=== PATIENT | male | born 1990 | race American Indian/Alaskan Native ===

== ENCOUNTER 2021-09-06 21:10 | Emergency (ER) | payer SELFPAY ==
[2021-09-06] MEDS ORDERED: SODIUM CHLORIDE 0.9% 1000 ML 1,000 ML IV ONE (21:42)
[2021-09-06] MEDS ORDERED: diazePAM 10 MG/2 ML SYRINGE IV ONE (21:42)
--- NOTE | 2021-09-06 21:43 | Emergency Department Report ---
ED General Adult HPI - General Chief complaint: Back Pain/Injury Stated complaint: BACK PAIN Time Seen by Provider: 09/06/21 21:31 Source: patient, EMS (Verbal report received from emergency medical services. EMS documentation not available at time of chart dictation ), RN notes reviewed Mode of arrival: Stretcher Limitations: Physical Limitation - History of Present Illness Initial comments: The patient was evaluated in the emergency department for symptoms described in the history of present illness. He/she was evaluated in the context of the [facility] COVID-19 pandemic, which necessitated consideration that the patient might be at risk for infection with the virus that causes COVID-19. Institutional protocols and algorithms that pertain to the evaluation of patients at risk for COVID-19 are in a state of rapid change based on information released by regulatory bodies including the CDC and federal and state organizations. These policies and algorithms were followed during the patient's care in the emergency department. Please note that these policies, procedures and recommendations changed on a rapid basis. This is a 30-year-old gentleman. He is brought to the hospital by emergency medical services. History obtained from patient and from EMS. As per verbal report from emergency medical services, patient is picked up while laying on a bed. The patient reportedly did a lot of heavy lifting yesterday in the hot outdoors. Patient reports wearing very heavy weights on his legs. He complains of paraspinal back pain. He is moving 4 extremities. No endorsement of bladder or bowel retention or incontinence. Patient having intermittent spasms. He is not homicidal or suicidal. - Related Data Previous Rx's Medication Instructions Recorded Last Taken Type Acetaminophen [Non-Aspirin Extra 500 mg PO Q6HR PRN #30 tablet 09/06/21 Unknown Rx Strength] Ibuprofen [Motrin] 600 mg PO Q8H PRN #30 tablet 09/06/21 Unknown Rx Allergies Allergy/AdvReac Type Severity Reaction Status Date / Time No Known Allergies Allergy Verified 09/06/21 22:22 ED Review of Systems ROS: Stated complaint: BACK PAIN Other details as noted in HPI ED Past Medical Hx - Social History Smoking Status: Never Smoker Substance Use Type: Alcohol, Marijuana - Medications Home Medications: Home Medications Medication Instructions Recorded Confirmed Last Taken Type Acetaminophen [Non-Aspirin Extra 500 mg PO Q6HR PRN #30 tablet 09/06/21 Unknown Rx Strength] Ibuprofen [Motrin] 600 mg PO Q8H PRN #30 tablet 09/06/21 Unknown Rx ED Physical Exam - General Limitations: No Limitations ED Course Vital Signs 09/06/21 09/06/21 09/06/21 21:21 21:36 21:46 Temperature 98.2 F Pulse Rate 98 H 103 H 101 H Respiratory 19 11 L 16 Rate Blood Pressure 148/82 145/86 Blood Pressure [Right] O2 Sat by Pulse 98 98 Oximetry O2 Sat by Pulse Oximetry [ Digit-Finger] 09/06/21 09/06/21 09/06/21 22:04 22:22 22:44 Temperature 98.9 F Pulse Rate 93 H Respiratory 15 11 L Rate Blood Pressure 145/86 Blood Pressure 147/82 [Right] O2 Sat by Pulse 99 Oximetry O2 Sat by Pulse 99 Oximetry [ Digit-Finger] - Reevaluation(s) Reevaluation #1: 09/06/21 23:52 The patient is reassessed. He feels completely improved. He is moving 4 extremities. On initial reassessment, he is resting comfortably, sleeping and in no acute distress. He endorses near complete resolution of symptoms. His laboratory studies are essentially unremarkable. CT scan is essentially unremarkable. We discussed conservative care for presumed mechanical back pain. Return precautions are reviewed. All questions answered - Pulse Oximetry Interpretation Digit-Finger Initial Pulse Oximetry Readin O2 Sat by Pulse Oximetry: 99 Actions Taken: none ED Medical Decision Making - Lab Data Result diagrams: 09/06/21 22:32 09/06/21 22:32 Vital Signs 09/06/21 09/06/21 09/06/21 21:21 21:36 21:46 Temperature 98.2 F Pulse Rate 98 H 103 H 101 H Respiratory 19 11 L 16 Rate Blood Pressure 148/82 145/86 Blood Pressure [Right] O2 Sat by Pulse 98 98 Oximetry 09/06/21 09/06/21 22:04 22:22 Temperature 98.9 F Pulse Rate 93 H Respiratory 15 11 L Rate Blood Pressure 145/86 Blood Pressure 147/82 [Right] O2 Sat by Pulse 99 Oximetry Vital Signs 09/06/21 09/06/21 09/06/21 21:21 21:36 21:46 Temperature 98.2 F Pulse Rate 98 H 103 H 101 H Respiratory 19 11 L 16 Rate Blood Pressure 148/82 145/86 Blood Pressure [Right] O2 Sat by Pulse 98 98 Oximetry O2 Sat by Pulse Oximetry [ Digit-Finger] 09/06/21 09/06/21 09/06/21 22:04 22:22 22:44 Temperature 98.9 F Pulse Rate 93 H Respiratory 15 11 L Rate Blood Pressure 145/86 Blood Pressure 147/82 [Right] O2 Sat by Pulse 99 Oximetry O2 Sat by Pulse 99 Oximetry [ Digit-Finger] Lab Results 09/06/21 09/06/21 09/06/21 Range/Units 22:32 22:32 22:32 Hgb 13.0 (11.8-15.2) gm/dl Hct 39.9 (35.5-45.6) % Sodium 137 (137-145) mmol/L Potassium 4.1 (3.6-5.0) mmol/L Chloride 99.0 (98-107) mmol/L Carbon Dioxide 29 (22-30) mmol/L Anion Gap 13 mmol/L BUN 11 (9-20) mg/dL Creatinine 0.7 L (0.8-1.3) mg/dL Estimated GFR > 60 ml/min BUN/Creatinine Ratio 16 % Glucose 130 H (75-100) mg/dL Calcium 10.0 (8.4-10.2) mg/dL Total Bilirubin 0.90 (0.1-1.2) mg/dL AST 20 (5-40) units/L ALT 16 (7-56) units/L Alkaline Phosphatase 67 (35-129) units/L Total Creatine Kinase 231 H (55-170) units/L Total Protein 7.6 (6.3-8.2) g/dL Albumin 4.1 (3.9-5) g/dL Albumin/Globulin Ratio 1.2 % Salicylates < 0.3 L (2.8-20.0) mg/dL Acetaminophen (10.0-30.0) ug/mL 09/06/21 Range/Units 22:32 Hgb (11.8-15.2) gm/dl Hct (35.5-45.6) % Sodium (137-145) mmol/L Potassium (3.6-5.0) mmol/L Chloride (98-107) mmol/L Carbon Dioxide (22-30) mmol/L Anion Gap mmol/L BUN (9-20) mg/dL Creatinine (0.8-1.3) mg/dL Estimated GFR ml/min BUN/Creatinine Ratio % Glucose (75-100) mg/dL Calcium (8.4-10.2) mg/dL Total Bilirubin (0.1-1.2) mg/dL AST (5-40) units/L ALT (7-56) units/L Alkaline Phosphatase (35-129) units/L Total Creatine Kinase (55-170) units/L Total Protein (6.3-8.2) g/dL Albumin (3.9-5) g/dL Albumin/Globulin Ratio % Salicylates (2.8-20.0) mg/dL Acetaminophen 5.0 L (10.0-30.0) ug/mL - Radiology Data Radiology results: pending, report reviewed, image reviewed CT ABDOMEN AND PELVIS WITHOUT CONTRAST INDICATION / CLINICAL INFORMATION: Muscular back pain and myalgias after heavy liftin. TECHNIQUE: Axial CT images were obtained through the abdomen and pelvis without IV contrast. All CT scans at this location are performed using CT dose reduction for [employer] by means of automated exposure control. COMPARISON: None available. FINDINGS: LOWER CHEST: No significant abnormality. AORTA / ARTERIES: No significant abnormality. IVC / VEINS: No significant abnormality. LYMPH NODES: No significant adenopathy. COLON: No significant abnormality. APPENDIX: No significant abnormality. STOMACH / SMALL BOWEL: No significant abnormality. PERITONEUM: No free fluid. No free air. No fluid collection. LIVER: No significant abnormality. GALLBLADDER: No significant abnormality. BILE DUCTS: No significant abnormality. PANCREAS: No significant abnormality. SPLEEN: No significant abnormality. ADRENALS: No significant abnormality. RIGHT KIDNEY / URETER: No significant abnormality. LEFT KIDNEY / URETER: No significant abnormality. URINARY BLADDER: No significant abnormality. REPRODUCTIVE ORGANS: No significant abnormality. SKELETAL SYSTEM: No significant abnormality. ADDITIONAL FINDINGS: None. IMPRESSION: 1. No CT findings to explain symptomatology. Signer Name: Omar Martino DO Signed: 09/06/2021 9:29 PM Workstation Name: [id number] Critical care attestation.: If time is entered above; I have spent that time in minutes in the direct care of this critically ill patient, excluding procedure time. ED Disposition Clinical Impression: Lower back pain, Muscle spasm Disposition: HOME / SELF CARE / HOMELESS Is pt being admited?: No Does the pt Need Aspirin: No Condition: Good Additional Instructions: Alternate ice packs and heat packs as needed for physical pain. Drink 6 cups of water per day. Advance diet as tolerated. Take the prescribed pain medications as needed and directed. Avoid heavy lifting and strenuous physical activity. Follow-up with an outpatient primary care doctor within the next week. Please return to the emergency room right away with new pain, worsened pain, migration of pain, projectile vomiting, change in mental status, confusion, inability tolerate liquid feeds, new, worsened or different symptoms not present on the initial emergency room evaluation Referrals: [facility] [Provider Group] - 3-5 Days
--- NOTE | 2021-09-06 22:34 | Cat Scan Report ---
CT ABDOMEN AND PELVIS WITHOUT CONTRAST INDICATION / CLINICAL INFORMATION: Muscular back pain and myalgias after heavy liftin. TECHNIQUE: Axial CT images were obtained through the abdomen and pelvis without IV contrast. All CT scans at this location are performed using CT dose reduction for [place] by means of automated exposure control. COMPARISON: None available. FINDINGS: LOWER CHEST: No significant abnormality. AORTA / ARTERIES: No significant abnormality. IVC / VEINS: No significant abnormality. LYMPH NODES: No significant adenopathy. COLON: No significant abnormality. APPENDIX: No significant abnormality. STOMACH / SMALL BOWEL: No significant abnormality. PERITONEUM: No free fluid. No free air. No fluid collection. LIVER: No significant abnormality. GALLBLADDER: No significant abnormality. BILE DUCTS: No significant abnormality. PANCREAS: No significant abnormality. SPLEEN: No significant abnormality. ADRENALS: No significant abnormality. RIGHT KIDNEY / URETER: No significant abnormality. LEFT KIDNEY / URETER: No significant abnormality. URINARY BLADDER: No significant abnormality. REPRODUCTIVE ORGANS: No significant abnormality. SKELETAL SYSTEM: No significant abnormality. ADDITIONAL FINDINGS: None. IMPRESSION: 1. No CT findings to explain symptomatology. Signer Name: Omar Martino DO Signed: 09/06/2021 10:29 PM Workstation Name: [id number]
[2021-09-06 22:46] LABS: Hematocrit 39.9 % (35.5-45.6)
[2021-09-06 23:14] LABS: Alanine Aminotransferase 16 units/L (7-56); Albumin 4.1 g/dL (3.9-5); Blood Urea Nitrogen 11 mg/dL (9-20); Hemolysis Index 7
[2021-09-06 23:30] LABS: BUN/Creatinine Ratio 16
[2021-09-06] MEDS ORDERED: KETOROLAC 30 MG/1 ML INJ IV ONE (23:47)
[2021-09-07 00:50] VITALS: BP 155/75
== END 2021-09-07 01:11 | disposition home or self-care (01) ==
LOC: ED 21:10
DX: M54.50 Low back pain, unspecified (principal); M62.838 Other muscle spasm
CPT/HCPCS: 36415; 74176; 80053; 82550; 85014; 85018; 96361; 96374; 99284; J3360; J7030; 80320; G0480